=== PATIENT | female | born 1970 ===

== ENCOUNTER 2023-01-02 10:26 | Day surgery (SDC) | payer OTHER ==
[2023-01-02] MEDS ORDERED: fentaNYL citrate 0.05 MG/ML VIAL ONE (12:23)
[2023-01-02] MEDS ORDERED: diphenhydrAMINE 50 MG/ML VIAL ONE (12:23)
[2023-01-02] MEDS ORDERED: MIDAZOLAM 5 MG/5 ML VIAL ONE (12:24)
[2023-01-02] MEDS ORDERED: diphenhydrAMINE 50 MG/ML VIAL IM/IVP ONE (14:00)
[2023-01-02] MEDS ORDERED: MIDAZOLAM 5 MG/5 ML VIAL IV ONE (14:00)
[2023-01-02] MEDS ORDERED: fentaNYL citrate 0.05 MG/ML VIAL IVP ONE (14:00)
== END 2023-01-02 13:45 | disposition home or self-care (01) ==
LOC: MDS 10:26 → MMU 10:30 → MDS 13:45
PROVIDERS: ATTEND Internal Medicine Gastroenterology
DX: R10.13 Epigastric pain (principal); K21.9 Gastro-esophageal reflux disease without esophagitis; K25.9 Gastric ulcer, unspecified as acute or chronic, without hemorrhage or perforation; K44.9 Diaphragmatic hernia without obstruction or gangrene; I10 Essential (primary) hypertension; Z90.710 Acquired absence of both cervix and uterus; Z90.49 Acquired absence of other specified parts of digestive tract; Z79.899 Other long term (current) drug therapy
CPT/HCPCS: 43235; J1200; J2250; J3010